=== PATIENT | female | born 1980 | race Caucasian/White ===

== ENCOUNTER 2019-04-12 21:14 | Emergency (ER) | payer OTHER, MEDICAID ==
[~2019-04-12] VITALS: Ht 157.5 cm; Wt 117.5 kg
[~2019-04-12 21:14] MED LIST: CLARITIN10 MG PO; CLONAZEPAM 0.50.5 M1 PO; DICLOFENAC SODI75 MG PO; FLAGYL500 MG PO; FLEXERIL PO; HYDROCODONE-AP1 EAC6 PO; IBUPROFEN 200200 M1 PO; MEDROLDOSEPACK PO; NORCO 5-325 TA1 EAC1 PO; NORCO 5-325 TA1 EACH PO; ONDANSETRON HCL4 M2 PO; PAXIL10 MG PO; SEROQUEL 25 MG25 M1 PO; ULTRAM 50MG TAB50 MG PO; XANAX1 MG PO
[2019-04-12 21:27] LABS: URINE BILIRUBIN NEGATIVE (Negative); URINE BLOOD NEGATIVE (Negative); URINE CLARITY CLEAR; URINE COLOR YELLOW; URINE GLUCOSE-RANDOM NEGATIVE (Negative); URINE KETONES NEGATIVE (Negative); URINE LEUKOCYTES-REFLEX NEGATIVE (Negative); URINE NITRITE-REFLEX NEGATIVE (Negative); URINE PROTEIN NEGATIVE (Negative); URINE UROBILINOGEN 0.2 E.U./dl (0.2-1.0)
[2019-04-12] MEDS ORDERED: NORCO 7.5-3251 EACH (21:29)
[2019-04-12 23:06] VITALS: BP 138/70
== END 2019-04-12 23:08 | disposition home or self-care (01) ==
LOC: M.ERS 21:14
PROVIDERS: Physician Assistant
DX: N89.8 Other specified noninflammatory disorders of vagina (principal); M41.9 Scoliosis, unspecified

== ENCOUNTER 2019-05-12 13:03 | Emergency (ER) | payer OTHER, MEDICAID ==
[~2019-05-12] VITALS: Ht 157.5 cm; Wt 117.5 kg
[~2019-05-12 13:03] MED LIST changes: +NORCO 7.5-3251 EACH
[2019-05-12] MEDS ORDERED: HIGH BLOOD PRESSURE (13:20)
[2019-05-12] MEDS ORDERED: FISH OIL 1,001000 M2 PO (13:20)
[2019-05-12 14:17] LABS: URINE BILIRUBIN NEGATIVE (Negative); URINE BLOOD NEGATIVE (Negative); URINE CLARITY CLEAR; URINE COLOR YELLOW; URINE GLUCOSE-RANDOM NEGATIVE (Negative); URINE KETONES NEGATIVE (Negative); URINE LEUKOCYTES-REFLEX NEGATIVE (Negative); URINE NITRITE-REFLEX NEGATIVE (Negative); URINE PROTEIN NEGATIVE (Negative); URINE SPECIFIC GRAVITY >= 1.030 (1.005-1.030); URINE UROBILINOGEN 0.2 E.U./dl (0.2-1.0)
[2019-05-12] MEDS ORDERED: DOXYCYCLINE 10100 MG PO (15:21)
[2019-05-12 15:27] VITALS: BP 124/93
== END 2019-05-12 15:28 | disposition home or self-care (01) ==
LOC: M.ERS 13:03
PROVIDERS: Nurse Practitioner Family
DX: N72 Inflammatory disease of cervix uteri (principal); F42.9 Obsessive-compulsive disorder, unspecified; F31.9 Bipolar disorder, unspecified; M41.9 Scoliosis, unspecified; Z90.10 Acquired absence of unspecified breast and nipple

== ENCOUNTER 2019-09-06 11:54 | Emergency (ER) | payer OTHER, MEDICAID ==
[~2019-09-06] VITALS: Ht 157.5 cm; Wt 114.3 kg
[~2019-09-06 11:54] MED LIST changes: +DOXYCYCLINE 10100 MG PO; +FISH OIL 1,001000 M2 PO; +HIGH BLOOD PRESSURE
[2019-09-06 12:17] LABS: URINE BILIRUBIN NEGATIVE (Negative); URINE BLOOD TRACE (Negative); URINE CLARITY CLEAR; URINE COLOR YELLOW; URINE GLUCOSE-RANDOM NEGATIVE (Negative); URINE KETONES NEGATIVE (Negative); URINE NITRITE-REFLEX NEGATIVE (Negative); URINE PROTEIN NEGATIVE (Negative); URINE SPECIFIC GRAVITY >= 1.030 (1.005-1.030); URINE UROBILINOGEN 0.2 E.U./dl (0.2-1.0)
[2019-09-06 12:18] LABS: URINE LEUKOCYTES-REFLEX 2+ (Negative)
[2019-09-06 12:25] LABS: BACTERIA-REFLEX >30 Many /HPF (None Seen); CASTS None Seen /LPF (None Seen); CRYSTALS None Seen /LPF (None Seen); MUCUS 0-3 Light strn/LPF (None Seen); SQUAMOUS >10 Many /LPF (0-3); URINE RBC 0-2 Rare /HPF (0-2); URINE WBC-REFLEX 6-15 Few /HPF (0-5)
[2019-09-06 12:42] VITALS: BP 125/82
== END 2019-09-06 12:43 | disposition home or self-care (01) ==
LOC: M.ERS 11:54
PROVIDERS: Nurse Practitioner Family
DX: N72 Inflammatory disease of cervix uteri (principal); Z20.2 Contact with and (suspected) exposure to infections with a predominantly sexual mode of transmission; M41.9 Scoliosis, unspecified; F31.9 Bipolar disorder, unspecified

== ENCOUNTER 2019-09-13 17:43 | Emergency (ER) | payer OTHER, MEDICAID ==
[~2019-09-13] VITALS: Ht 157.5 cm; Wt 115.7 kg
[2019-09-13] MEDS ORDERED: FLAGYL500 M1 PO (18:16)
[2019-09-13 18:26] LABS: URINE BILIRUBIN NEGATIVE (Negative); URINE BLOOD NEGATIVE (Negative); URINE CLARITY CLOUDY; URINE COLOR YELLOW; URINE GLUCOSE-RANDOM NEGATIVE (Negative); URINE KETONES NEGATIVE (Negative); URINE LEUKOCYTES-REFLEX 1+ (Negative); URINE NITRITE-REFLEX NEGATIVE (Negative); URINE PROTEIN NEGATIVE (Negative); URINE SPECIFIC GRAVITY 1.025 (1.005-1.030); URINE UROBILINOGEN 0.2 E.U./dl (0.2-1.0)
[2019-09-13 18:34] LABS: SQUAMOUS >10 Many /LPF (0-3); URINE WBC-REFLEX 6-15 Few /HPF (0-5)
[2019-09-13 18:35] LABS: BACTERIA-REFLEX >30 Many /HPF (None Seen); URINE RBC 0-2 Rare /HPF (0-2)
[2019-09-13 18:36] LABS: CASTS None Seen /LPF (None Seen); CRYSTALS None Seen /LPF (None Seen); MUCUS 0-3 Light strn/LPF (None Seen)
[2019-09-13 18:46] VITALS: BP 115/82
== END 2019-09-13 18:48 | disposition home or self-care (01) ==
LOC: M.ERS 17:43
PROVIDERS: Family Medicine
DX: N89.8 Other specified noninflammatory disorders of vagina (principal); Z20.2 Contact with and (suspected) exposure to infections with a predominantly sexual mode of transmission; F31.9 Bipolar disorder, unspecified; M41.9 Scoliosis, unspecified; Z79.899 Other long term (current) drug therapy

== ENCOUNTER 2019-11-26 14:29 | Emergency (ER) | payer OTHER, MEDICAID ==
[~2019-11-26] VITALS: Ht 157.5 cm; Wt 108.9 kg
[~2019-11-26 14:29] MED LIST changes: +FLAGYL500 M1 PO
[2019-11-26] MEDS ORDERED: IRON325 PO (14:45)
[2019-11-26] MEDS ORDERED: GLUMETZA500 (14:45)
[2019-11-26 15:14] LABS: ICTOTEST (BILI CONFIRMATORY) Negative (Negative); URINE BILIRUBIN 1+ (Negative); URINE BLOOD 1+ (Negative); URINE CLARITY CLEAR; URINE COLOR YELLOW; URINE GLUCOSE-RANDOM NEGATIVE (Negative); URINE KETONES TRACE (Negative); URINE LEUKOCYTES-REFLEX 2+ (Negative); URINE NITRITE-REFLEX NEGATIVE (Negative); URINE PROTEIN 1+ (Negative); URINE SPECIFIC GRAVITY >= 1.030 (1.005-1.030); URINE UROBILINOGEN 0.2 E.U./dl (0.2-1.0)
[2019-11-26 15:16] LABS: CASTS None Seen /LPF (None Seen); CRYSTALS None Seen /LPF (None Seen); SQUAMOUS >10 Many /LPF (0-3); URINE RBC 3-10 Few /HPF (0-2); URINE WBC-REFLEX >25 Many /HPF (0-5)
[2019-11-26] MEDS ORDERED: KEFLEX500 M1 PO (15:40)
[2019-11-26] MEDS ORDERED: PROCTOCORT30 MG RECTAL (15:40)
[2019-11-26 16:16] VITALS: BP 136/85
== END 2019-11-26 16:16 | disposition home or self-care (01) ==
LOC: M.ERS 14:29
PROVIDERS: Nurse Practitioner Family
DX: N39.0 Urinary tract infection, site not specified (principal); K64.9 Unspecified hemorrhoids; N89.8 Other specified noninflammatory disorders of vagina; F31.9 Bipolar disorder, unspecified

== ENCOUNTER 2020-01-29 09:56 | Emergency (ER) | payer OTHER, MEDICAID ==
[~2020-01-29] VITALS: Ht 157.5 cm; Wt 111.1 kg
[~2020-01-29 09:56] MED LIST changes: +GLUMETZA500; +IRON325 PO; +KEFLEX500 M1 PO; +PROCTOCORT30 MG RECTAL
[2020-01-29 10:07] LABS: URINE BILIRUBIN NEGATIVE (Negative); URINE BLOOD 1+ (Negative); URINE CLARITY CLEAR; URINE COLOR YELLOW; URINE GLUCOSE-RANDOM NEGATIVE (Negative); URINE KETONES NEGATIVE (Negative); URINE LEUKOCYTES-REFLEX 1+ (Negative); URINE PROTEIN NEGATIVE (Negative); URINE UROBILINOGEN 0.2 E.U./dl (0.2-1.0)
[2020-01-29 10:08] LABS: URINE NITRITE-REFLEX POSITIVE (Negative)
[2020-01-29] MEDS ORDERED: HYDROCHLOROTHIA25 M2 PO (10:24)
[2020-01-29] MEDS ORDERED: CLONAZEPAM 0.50.5 M1 PO (10:24)
[2020-01-29] MEDS ORDERED: IBU600 MG PO (10:25)
[2020-01-29] MEDS ORDERED: NORCO 10-325 T1 EACH PO (10:25)
[2020-01-29 10:32] LABS: BACTERIA-REFLEX >30 Many /HPF (None Seen); CASTS None Seen /LPF (None Seen); MUCUS 0-3 Light strn/LPF (None Seen); SQUAMOUS >10 Many /LPF (0-3); URINE RBC 0-2 Rare /HPF (0-2); URINE WBC-REFLEX 6-15 Few /HPF (0-5)
[2020-01-29 10:33] LABS: CRYSTALS None Seen /LPF (None Seen)
[2020-01-29] MEDS ORDERED: SUPRAX400 M1 PO (10:53)
[2020-01-29] MEDS ORDERED: DIFLUCAN150 M1 PO (10:53)
[2020-01-29] MEDS ORDERED: MACROBID 100 M100 MG PO (10:53)
[2020-01-29] MEDS ORDERED: AZITHROMYCIN 2250 MG PO (10:53)
[2020-01-29] MEDS ORDERED: CLEOCIN HCL300 MG PO (10:53)
[2020-01-29 11:00] VITALS: BP 123/77
== END 2020-01-29 11:01 | disposition home or self-care (01) ==
LOC: M.ERS 09:56
PROVIDERS: Family Medicine
DX: L02.214 Cutaneous abscess of groin (principal); N39.0 Urinary tract infection, site not specified; Z20.2 Contact with and (suspected) exposure to infections with a predominantly sexual mode of transmission; M41.9 Scoliosis, unspecified

== ENCOUNTER 2020-05-08 15:37 | Emergency (ER) | payer OTHER, MEDICAID ==
[~2020-05-08] VITALS: Ht 157.5 cm; Wt 106.1 kg
[~2020-05-08 15:37] MED LIST changes: +AZITHROMYCIN 2250 MG PO; +CLEOCIN HCL300 MG PO; +DIFLUCAN150 M1 PO; +HYDROCHLOROTHIA25 M2 PO; +IBU600 MG PO; +MACROBID 100 M100 MG PO; +NORCO 10-325 T1 EACH PO; +SUPRAX400 M1 PO
[2020-05-08] MEDS ORDERED: SUPRAX400 M1 PO (15:59)
[2020-05-08] MEDS ORDERED: AZITHROMYCIN250 MG PO (15:59)
[2020-05-08 16:03] LABS: URINE BILIRUBIN NEGATIVE (Negative); URINE BLOOD 3+ (Negative); URINE CLARITY CLOUDY; URINE COLOR YELLOW; URINE GLUCOSE-RANDOM NEGATIVE (Negative); URINE KETONES NEGATIVE (Negative); URINE PROTEIN 2+ (Negative); URINE SPECIFIC GRAVITY 1.025 (1.005-1.030); URINE UROBILINOGEN 0.2 E.U./dl (0.2-1.0)
[2020-05-08 16:04] LABS: URINE LEUKOCYTES-REFLEX 2+ (Negative); URINE NITRITE-REFLEX POSITIVE (Negative)
[2020-05-08] MEDS ORDERED: DOXYCYCLINE 10100 MG PO (16:13)
[2020-05-08 16:14] LABS: SQUAMOUS >10 Many /LPF (0-3); URINE WBC-REFLEX >25 Many /HPF (0-5); WBC CLUMPS Few (None Seen)
[2020-05-08 16:15] LABS: BACTERIA-REFLEX >30 Many /HPF (None Seen); HYALINE CASTS 0-3 Few /LPF (None Seen)
[2020-05-08 16:16] LABS: CRYSTALS None Seen /LPF (None Seen); MUCUS None Seen strn/LPF (None Seen); URINE RBC 3-10 Few /HPF (0-2)
[2020-05-08] MEDS ORDERED: FLAGYL500 M1 PO (16:28)
[2020-05-08] MEDS ORDERED: DIFLUCAN150 MG PO (16:29)
[2020-05-08 16:35] VITALS: BP 126/86
== END 2020-05-08 16:35 | disposition home or self-care (01) ==
LOC: M.ERS 15:37
PROVIDERS: Physician Assistant
DX: N76.0 Acute vaginitis (principal); B96.89 Other specified bacterial agents as the cause of diseases classified elsewhere; N39.0 Urinary tract infection, site not specified; M41.9 Scoliosis, unspecified